=== PATIENT | female | born 2000 | race Caucasian/White ===

== ENCOUNTER 2020-08-03 08:34 | Emergency (ER) | payer OTHER ==
[~2020-08-03] VITALS: Ht 162.6 cm; Wt 89.1 kg
[2020-08-03 09:20] LABS: BASO % 0.2 % (0.0-1.0); EOS # 0.1 10^3/uL (0.0-0.5); EOS % 1.6 % (0.0-3.0); HEMATOCRIT 41.7 % (36.0-47.0); HEMOGLOBIN 13.1 g/dl (12.0-15.5); LYMPH # 3.5 10^3/uL (1.5-5.0); LYMPH % 42.5 % (24.0-44.0); MEAN CORPUSCULAR HEMOGLOBIN 24.7 pg (27.0-33.0); MEAN CORPUSCULAR HGB CONC 31.4 g/dl (32.0-36.5); MEAN CORPUSCULAR VOLUME 78.7 fl (80.0-96.0); MONO # 0.5 10^3/uL (0.0-0.8); MONO % 6.5 % (2.0-8.0); NEUTROPHILS # 4.1 10^3/uL (1.5-8.5); NEUTROPHILS % 48.8 % (36.0-66.0); PLATELET COUNT, AUTOMATED 334 10^3/uL (150-450); WHITE BLOOD COUNT 8.3 10^3/uL (4.0-10.0)
[2020-08-03 09:26] LABS: APPEARANCE, URINE CLOUDY (CLEAR); BACTERIA, URINE AUTO NEGATIVE (NEGATIVE); BILIRUBIN, URINE AUTO NEGATIVE (NEGATIVE); BLOOD, URINE BLOOD 3+ (NEGATIVE); COLOR, URINE YELLOW (YELLOW); GLUCOSE, URINE (UA) AUTO NEGATIVE (NEGATIVE); KETONE, URINE AUTO NEGATIVE (NEGATIVE); LEUKOCYTE ESTERASE, URINE AUTO 1+ (NEGATIVE); MUCUS, URINE SMALL (NEGATIVE); NITRITE, URINE AUTO NEGATIVE (NEGATIVE); PROTEIN, URINE AUTO 1+ mg/dL (NEGATIVE); RBC, URINE AUTO TNTC /HPF (0-3); SPECIFIC GRAVITY URINE AUTO 1.016 (1.002-1.035); SQUAMOUS EPITHELIAL CELL UR AU 5 /HPF (0-6); UROBILINOGEN, URINE AUTO 0.2 mg/dL (0.0-2.0); WBC, URINE AUTO 14 /HPF (0-3)
--- NOTE | 2020-08-03 10:58 | REP ---
INDICATION: vaginal bleeding, 5 weeks . COMPARISON: None. TECHNIQUE: Real-time sonographic evaluation of pelvis performed utilizing transabdominal and endovaginal technique. FINDINGS: Uterus measures 6.9 x 3.1 x 3.7 cm. Endometrial echo complex measures 7 mm. There is no intrauterine gestational sac identified. Right ovary measures 2.5 x 1.3 x 1.8 cm and left ovary 2.5 x 1.2 x 2.0 cm. There is no evidence of ovarian torsion, resistive index right ovary 0.51 left ovary 0.62. There is no adnexal mass or free fluid. IMPRESSION: No gestational sac in the uterus. No fluid collection in the endometrial canal. No adnexal mass, torsion or free fluid. With a positive test, differential diagnosis would include very early intrauterine , missed AB, or ectopic . Suggest correlation with serial quantitative beta HCG values, and follow-up ultrasound if necessary. <Electronically signed by Krzysztof Perdomo > 08/03/20 1058
[2020-08-03 11:27] VITALS: BP 176/93
== END 2020-08-03 11:34 | disposition home or self-care (01) ==
LOC: M ED 08:34
DX: O20.0 Threatened abortion (principal); Z3A.01 Less than 8 weeks gestation of pregnancy; Z91.040 Latex allergy status

== ENCOUNTER → 2020-12-17 | Outpatient (CLI) | payer OTHER ==
[2020-12-17 16:19] LABS: PROGESTERONE 9.93 NG/ML
== END ==
LOC: M LAB 15:05
PROVIDERS: ATTEND Nurse Practitioner Family
DX: Z32.01 Encounter for pregnancy test, result positive (principal)

== ENCOUNTER → 2023-09-08 | Outpatient (CLI) | payer OTHER | LOC: M RAD 07:49 | PROVIDERS: ATTEND Nurse Practitioner Family | DX: K76.0 Fatty (change of) liver, not elsewhere classified (principal) ==

== ENCOUNTER → 2024-06-10 | Outpatient (CLI) | payer OTHER | LOC: M PLAIMG 12:15 | PROVIDERS: ATTEND Nurse Practitioner Family | DX: R51.9 Headache, unspecified (principal) ==

== ENCOUNTER 2025-01-08 06:17 | Observation (INO) | payer OTHER ==
[2024-12-31] MEDS: ceFAZolin SOD 2 GM IV ONCE IV ONE (06:00)
[2024-12-31] MEDS: HEPARIN SOD 5000 UNITS/ML 1 ML VIAL/SYRINGE SQ ONE (06:00)
[~2025-01-08] VITALS: Ht 162.6 cm; Wt 85.4 kg
[2025-01-08] VITALS (10 sets, daily range): BP systolic 103–133; BP diastolic 57–90; TEMP 97.2–97.9; O2SAT 96–99
[~2025-01-08 06:17] MED LIST: AMPH1CAP9 PO; LEXA1TAB PO; SPIR50TA4 PO
[2025-01-08] MEDS ORDERED: LIDOCAINE 2% 100 MG/5 ML SDV (FOR ANES.) As Ordered ONE (07:17)
[2025-01-08] MEDS ORDERED: dexAMETHasone 4 MG/ML 1 ML VIAL As Ordered ONE (07:17)
[2025-01-08] MEDS ORDERED: ROCURONIUM BROMIDE 50MG/5ML VIAL As Ordered ONE (07:17)
[2025-01-08] MEDS ORDERED: ONDANSETRON 4MG 2ML VIAL As Ordered ONE (07:17)
[2025-01-08] MEDS ORDERED: dexmedeTOMIDine (4 MCG/ML) 200 MCG/50 ML BTL As Ordered ONE (07:18)
[2025-01-08] MEDS ORDERED: MIDAZOLAM INJ 2 MG/2 ML VIAL As Ordered ONE (07:18)
[2025-01-08] MEDS: SCOPOLAMINE 1MG TRANSDERMAL PATCH TOP ONE (07:30)
[2025-01-08] MEDS ORDERED: LR 1,000 ML IV SCH (07:30)
[2025-01-08] MEDS: ceFAZolin SOD 2 GM IV ONCE IV ONE (07:51)
[2025-01-08] MEDS: HEPARIN SOD 5000 UNITS/ML 1 ML VIAL/SYRINGE SQ ONE (07:55)
[2025-01-08] MEDS ORDERED: LACRILUBE (AKWA TEARS) OPHTH OINT 3.5 GM As Ordered ONE (07:59)
[2025-01-08] MEDS ORDERED: ACETAMINOPHEN 1000MG/100ML IV BAG As Ordered ONE (08:10)
[2025-01-08] MEDS ORDERED: HYDROmorphone HCL 2 MG/ML 1 ML VIAL As Ordered ONE (08:23)
[2025-01-08] MEDS ORDERED: SUGAMMADEX SODIUM 500 MG/5 ML VIAL As Ordered ONE (08:30)
[2025-01-08] MEDS ORDERED: AMPH1CAP14 PO (08:31)
[2025-01-08] MEDS ORDERED: HOME MED LIST COMPLETE! XX SCH (08:35)
[2025-01-08] MEDS: GENTAMICIN SULF 80 MG/2 ML VIAL As Ordered ONE (08:59)
[2025-01-08] MEDS: SCOPOLAMINE 1MG TRANSDERMAL PATCH As Ordered ONE (09:15)
[2025-01-08] MEDS ORDERED: ESMOLOL 100 MG/10 ML VIAL As Ordered ONE (11:40)
[2025-01-08] MEDS: LR 1,000 ML IV SCH (11:55)
[2025-01-08] MEDS: HYDROMORPHONE HCL 0.5 MG/0.5 ML SYRINGE IV PRN (12:21)
[2025-01-08] MEDS: ONDANSETRON 4MG 2ML VIAL IV PRN ×2 (12:21→13:21)
[2025-01-08] MEDS: ceFAZolin SODIUM 2 GM in DEXTROSE 5% (D5W) ADV/MINI-BAG 50 ML IV SCH (16:26)
[2025-01-08] MEDS: traMADol 50 MG TAB PO PRN (16:27)
[2025-01-08] MEDS: ESCITALOPRAM OXALATE 10 MG TABLET PO SCH (16:28)
[2025-01-08] MEDS: SPIRONOLACTONE 50 MG TAB PO SCH (16:28)
[2025-01-08] MEDS: ACETAMINOPHEN 325 MG TAB PO PRN (20:20)
[2025-01-09 00:07] VITALS: BP 111/58; TEMP 97.3; O2SAT 96
[2025-01-09 05:27] VITALS: BP 112/60; TEMP 97.2; O2SAT 98
[2025-01-09] MEDS: PERCOCET 5MG/325MG TAB PO PRN (05:29)
[2025-01-09 08:00] VITALS: BP 118/72; TEMP 97.5; O2SAT 97
[2025-01-09 11:51] VITALS: BP 127/66; TEMP 97.9; O2SAT 100
[2025-01-09] MEDS ORDERED: PERCOCET PO (12:45)
== END 2025-01-09 14:20 | disposition home or self-care (01) ==
LOC: M SDC 06:17 → M RR INP 06:18 → M MS5PR 12:49
PROVIDERS: ADMIT Plastic Surgery Surgery of the Hand; ATTEND Plastic Surgery Surgery of the Hand
DX: N62 Hypertrophy of breast (principal); G43.909 Migraine, unspecified, not intractable, without status migrainosus; J45.909 Unspecified asthma, uncomplicated; Z79.899 Other long term (current) drug therapy; Z91.040 Latex allergy status
CPT/HCPCS: 19318; 81025; 88305; 96365; 96366; 96375; 96376; J0131; J0665; J0666; J0690; J1100; J1171; J1580; J2250; J2405; J2765; J3010